=== PATIENT | female | born 1970 | race Caucasian/White ===

== ENCOUNTER 2017-07-02 09:22 | Emergency (ER) | payer OTHER ==
[2017-07-02] MEDS ORDERED: LEVOFLOXACIN 500MG-D5W PMX 500 MG in DEXTROSE/WATER 1 100ML.BAG IVPB STA (10:27)
[2017-07-02] MEDS ORDERED: LORazepam 2 MG/ML INJ IV STA (10:28)
[2017-07-02] MEDS ORDERED: KETOROLAC 30 MG/ML 1 ML VIAL IVP STA (10:28)
[2017-07-02] MEDS ORDERED: SODIUM CHLORIDE 0.9% 1,000 ML IV STA ×2 (10:40)
--- NOTE | 2017-07-02 10:40 | ED ---
Abdominal Pain HPI - General Chief Complaint: Abdominal Pain Stated Complaint: ABDOMINAL PAIN, NOT GETTING BETTER Time Seen by Provider: 07/02/17 10:04 Source: patient Mode of arrival: ambulatory Limitations: no limitations - History of Present Illness Initial Comments: This 47-year-old white female presents with a complaint of a urinary tract infection. She states that she has been having some frequency, urgency, dysuria but no hematuria which started approximately one week ago. She saw her primary care physician and was placed on ciprofloxacin 250 mg twice a day for 7 days. She states that her symptoms have persisted. She is now complaining of some pain into her left lower abdomen. There is no flank pain or fever. She states that the pain is moderate in severity. She is quite anxious. She denies any vomiting or diarrhea. No other complaints or modifying factors. - Related Data Home Medications Medication Instructions Recorded Confirmed Albuterol Nebulized [Ventolin 2.5 mg INHALATION RT-QID PRN 07/02/17 07/02/17 Nebulized] Ciprofloxacin HCl [Cipro] 250 mg PO DIRECTED 07/02/17 07/02/17 Uristat 95 Mg 95 mg PO BID 07/02/17 07/02/17 Previous Rx's Medication Instructions Recorded Levofloxacin [Levaquin] 750 mg PO DAILY #7 tab 07/02/17 Ondansetron [Zofran ODT] 8 mg PO Q8HR PRN #12 tab 07/02/17 traMADol HCl [Ultram] 50 - 100 mg PO Q6H PRN #15 tab 07/02/17 Allergies Allergy/AdvReac Type Severity Reaction Status Date / Time cefaclor [From Ceclor] Allergy Anaphylaxis Verified 07/02/17 10:28 Review of Systems ROS Statement: Those systems with pertinent positive or pertinent negative responses have been documented in the HPI. ROS Other: All systems not noted in ROS Statement are negative. Past Medical History Past Medical History: Asthma History of Any Multi-Drug Resistant Organisms: None Reported Past Surgical History: Cholecystectomy Past Psychological History: No Psychological Hx Reported Smoking Status: Current every day smoker Past Alcohol Use History: None Reported Past Drug Use History: None Reported General Exam - General Exam Comments Initial Comments: GENERAL: The patient is well nourished and well hydrated. VITAL SIGNS: Heart rate, blood pressure, respiratory rate reviewed as recorded in nurse's notes. EYES: Pupils are round and reactive. Extraocular movements are intact. No conjunctival / lid redness or swelling. ENT: No external evidence of injury, swelling, or ecchymosis. Airway is patent. Throat is clear. NECK: Nontender. No swelling or evidence of injury. No subcutaneous emphysema. Trachea is midline. No thyroid mass. HEART: Regular rate and rhythm. Good peripheral pulses. LUNGS/CHEST: Breath sounds clear and equal bilaterally. No rales, rhonchi, or wheezes. No ecchymosis, subcutaneous emphysema, or tenderness. ABDOMEN: There is some mild tenderness noted in the left lower quadrant. No palpable masses or organomegaly. No peritoneal signs. No abdominal wall swelling or ecchymosis. No flank tenderness noted. EXTREMITIES: No extremity tenderness. Normal muscle tone and function. No thoracolumbar tenderness. NEUROLOGIC: Sensation is grossly intact. Cranial nerve exam reveals face is symmetrical, tongue is midline, speech is clear. SKIN: No abrasions or ecchymosis is noted. No induration or masses noted. PSYCHIATRIC: Alert and oriented. Extremely anxious. Limitations: no limitations Course Vital Signs 07/02/17 09:58 Temperature 97.9 F Pulse Rate 106 H Respiratory 20 Rate Blood Pressure 145/74 O2 Sat by Pulse 97 Oximetry Medical Decision Making - Medical Decision Making The patient was seen and examined. All diagnostics were reviewed. An IV is established and she received some Ativan, Toradol, and Levaquin. The laboratories reviewed and overall is fairly unremarkable. The urinalysis currently does not show any evidence of infection. The patient had a computed tomography scan of the abdomen and pelvis and this does not show any acute abnormalities. She is feeling remarkably improved on recheck. Her pain is much improved and her anxiety is improved. The exact cause of her abdominal pain is not definitively determined. It is felt as though she still may have a urinary infection. Is felt that her urine may be somewhat sterilized from the recent Cipro use but she still is having the frequency or urgency dysuria and the suprapubic pain with some slight pain to the left as well. It is felt that she is stable for discharge but will be continued on antibiotics as well as pain medications and nausea medications. She understands and agrees with this plan. His recommend that she follow up with her physician closely. It also appears that she has underlying anxiety issues that may want to be addressed through primary care. - Lab Data Result diagrams: 07/02/17 10:20 07/02/17 10:20 Lab Results 07/02/17 07/02/17 07/02/17 Range/Units 10:20 10:20 10:20 WBC 9.6 (3.8-10.6) k/uL RBC 4.70 (3.80-5.40) m/uL Hgb 13.7 (11.4-16.0) gm/dL Hct 42.3 (34.0-46.0) % MCV 89.9 (80.0-100.0) fL MCH 29.1 (25.0-35.0) pg MCHC 32.3 (31.0-37.0) g/dL RDW 12.3 (11.5-15.5) % Plt Count 447 (150-450) k/uL Neutrophils % (Manual) 78 % Lymphocytes % (Manual) 21 % Monocytes % (Manual) 1 % Neutrophils # (Manual) 7.49 (1.3-7.7) k/uL Lymphocytes # (Manual) 2.02 (1.0-4.8) k/uL Monocytes # (Manual) 0.10 (0-1.0) k/uL Nucleated RBCs 0 (0-0) /100 WBC Manual Slide Review Performed Poikilocytosis (manual Present Sodium 145 (137-145) mmol/L Potassium 5.3 H (3.5-5.1) mmol/L Chloride 105 (98-107) mmol/L Carbon Dioxide 28 (22-30) mmol/L Anion Gap 12 mmol/L BUN 16 (7-17) mg/dL Creatinine 0.70 (0.52-1.04) mg/dL Est GFR (MDRD) Af Amer >60 (>60 ml/min/1.73 sqM) Est GFR (MDRD) Non-Af >60 (>60 ml/min/1.73 sqM) Glucose 102 H (74-99) mg/dL Calcium 10.5 H (8.4-10.2) mg/dL Urine Color Urine Appearance (Clear) Urine pH (5.0-8.0) Ur Specific [place] (1.001-1.035) Urine Protein (Negative) Urine Glucose (UA) (Negative) Urine Ketones (Negative) Urine Blood (Negative) Urine Nitrite (Negative) Urine Bilirubin (Negative) Urine Urobilinogen (<2.0) mg/dL Ur Leukocyte Esterase (Negative) Urine HCG, Qual Not Detected (Not Detectd) 07/02/17 Range/Units 10:20 WBC (3.8-10.6) k/uL RBC (3.80-5.40) m/uL Hgb (11.4-16.0) gm/dL Hct (34.0-46.0) % MCV (80.0-100.0) fL MCH (25.0-35.0) pg MCHC (31.0-37.0) g/dL RDW (11.5-15.5) % Plt Count (150-450) k/uL Neutrophils % (Manual) % Lymphocytes % (Manual) % Monocytes % (Manual) % Neutrophils # (Manual) (1.3-7.7) k/uL Lymphocytes # (Manual) (1.0-4.8) k/uL Monocytes # (Manual) (0-1.0) k/uL Nucleated RBCs (0-0) /100 WBC Manual Slide Review Poikilocytosis (manual Sodium (137-145) mmol/L Potassium (3.5-5.1) mmol/L Chloride (98-107) mmol/L Carbon Dioxide (22-30) mmol/L Anion Gap mmol/L BUN (7-17) mg/dL Creatinine (0.52-1.04) mg/dL Est GFR (MDRD) Af Amer (>60 ml/min/1.73 sqM) Est GFR (MDRD) Non-Af (>60 ml/min/1.73 sqM) Glucose (74-99) mg/dL Calcium (8.4-10.2) mg/dL Urine Color Yellow Urine Appearance Clear (Clear) Urine pH 7.0 (5.0-8.0) Ur Specific [place] 1.002 (1.001-1.035) Urine Protein Negative (Negative) Urine Glucose (UA) Negative (Negative) Urine Ketones Negative (Negative) Urine Blood Negative (Negative) Urine Nitrite Negative (Negative) Urine Bilirubin Negative (Negative) Urine Urobilinogen <2.0 (<2.0) mg/dL Ur Leukocyte Esterase Negative (Negative) Urine HCG, Qual (Not Detectd) Disposition Clinical Impression: Abdominal pain, Anxiety, UTI (urinary tract infection), Hypertension, Nausea and vomiting Disposition: HOME SELF-CARE Condition: Good Instructions: Abdominal Pain (ED), Urinary Tract Infection in Women (ED), Anxiety (ED), Hypertension (ED) Prescriptions: Levofloxacin [Levaquin] 750 mg PO DAILY #7 tab Ondansetron [Zofran ODT] 8 mg PO Q8HR PRN #12 tab PRN Reason: Nausea traMADol HCl [Ultram] 50 - 100 mg PO Q6H PRN #15 tab PRN Reason: Pain Referrals: Bairon Perez MD [Primary Care Provider] - 1-2 days Time of Disposition: 11:53
[2017-07-02 10:42] LABS: Appearance,Urine Clear (Clear); Bilirubin,Urine Negative (Negative); Blood,Urine Negative (Negative); Color,Urine Yellow; Glucose,Urine (UA) Negative (Negative); Ketones,Urine Negative (Negative); Leukocyte Esterase,Urine Negative (Negative); Nitrite,Urine Negative (Negative); Protein,Urine Negative (Negative); Specific Gravity,Urine 1.002 (1.001-1.035); Urobilinogen,Urine <2.0 mg/dL (<2.0)
[2017-07-02 10:47] LABS: HCT 42.3 % (34.0-46.0); HGB 13.7 gm/dL (11.4-16.0); MCH 29.1 pg (25.0-35.0); MCHC 32.3 g/dL (31.0-37.0); MCV 89.9 fL (80.0-100.0); Mean Platelet Volume 7.4; Platelet Count 447 k/uL (150-450); RDW 12.3 % (11.5-15.5); WBC 9.6 k/uL (3.8-10.6)
[2017-07-02 10:54] LABS: Anion Gap 12 mmol/L; Blood Urea Nitrogen 16 mg/dL (7-17); Calcium 10.5 mg/dL (8.4-10.2); Carbon Dioxide 28 mmol/L (22-30); Chloride 105 mmol/L (98-107); Glucose 102 mg/dL (74-99); Potassium 5.3 mmol/L (3.5-5.1); Sodium 145 mmol/L (137-145)
--- NOTE | 2017-07-02 10:56 | CT ---
EXAMINATION TYPE: CT abdomen pelvis wo con DATE OF EXAM: 07/02/2017 COMPARISON: NONE INDICATION: Pelvic pain, UTI DLP: 233.9 mGycm, Automated exposure control for dose reduction was used. CONTRAST: None Study performed without Oral Contrast TECHNIQUE: Axial images were obtained from above the diaphragm to the pubic rami in the axial plane a t 5 mm thick sections. Reconstructed images are reviewed on the computer in the coronal plane. FINDINGS: Limited CT sections are obtained the lung bases. The lung bases are clear. CT ABDOMEN: Liver: Normal Spleen: Normal Pancreas: Normal Adrenal glands: The adrenal glands are normal. Gallbladder: Surgically absent Kidneys: No masses are evident. No hydronephrosis is present. No cysts are present. No renal stone s are evident. Aorta: Vascular calcification is within the aorta. Inferior vena cava: Normal. CT PELVIS: Loops of bowel within the abdomen and pelvis are normal. Studies without oral contrast limiting t he evaluation. Appendix: Not identified. No suspicious tubular structures or inflammatory changes are evident. Urinary bladder: Normal. Genitourinary structures: Uterus and ovaries appear within normal limits. No free fluid is within the pelvis. Osseous structures: No suspicious lytic or sclerotic lesions. IMPRESSIONS: 1. No acute changes abdomen or pelvis.
[2017-07-02 11:08] LABS: Lymphocytes # (M) 2.02 k/uL (1.0-4.8); Neutrophils # (M) 7.49 k/uL (1.3-7.7); Neutrophils % (M) 78 %; Nucleated Red Blood Cells 0 /100 WBC (0-0); Poikilocytosis (M) Present; Total Cells Counted 100
[2017-07-02 12:04] VITALS: BP 99/57; PULSE 87; RESP 16; TEMP 97.8
== END 2017-07-02 12:19 | disposition home or self-care (01) ==
LOC: EC 09:22
DX: N39.0 Urinary tract infection, site not specified (principal); I10 Essential (primary) hypertension; R11.2 Nausea with vomiting, unspecified; F17.200 Nicotine dependence, unspecified, uncomplicated; Z79.899 Other long term (current) drug therapy; Z88.1 Allergy status to other antibiotic agents; Z90.49 Acquired absence of other specified parts of digestive tract
CPT/HCPCS: 36415; 80048; 85025; 81003; 81025; 74176; 99284; 96365; 96375 ×2; J2060; J1956; J1885

== ENCOUNTER 2017-07-09 14:24 | Emergency (ER) | payer OTHER ==
[2017-07-09 15:13] VITALS: TEMP 98
[2017-07-09 16:19] LABS: ALT 18 U/L (9-52); AST 18 U/L (14-36); Albumin 4.8 g/dL (3.5-5.0); Alkaline Phosphatase 87 U/L (38-126); Amylase 48 U/L (30-110); Anion Gap 13 mmol/L; Blood Urea Nitrogen 14 mg/dL (7-17); Calcium 10.4 mg/dL (8.4-10.2); Carbon Dioxide 27 mmol/L (22-30); Chloride 104 mmol/L (98-107); Glucose 93 mg/dL (74-99); Lipase 106 U/L (23-300); Potassium 4.9 mmol/L (3.5-5.1); Sodium 144 mmol/L (137-145); Total Bilirubin 0.5 mg/dL (0.2-1.3)
[2017-07-09 16:25] LABS: HGB 14.1 gm/dL (11.4-16.0); MCH 29.3 pg (25.0-35.0); MCHC 33.6 g/dL (31.0-37.0); MCV 87.1 fL (80.0-100.0); Mean Platelet Volume 7.4; Platelet Count 397 k/uL (150-450); RBC 4.82 m/uL (3.80-5.40); RDW 12.4 % (11.5-15.5); WBC 10.3 k/uL (3.8-10.6)
[2017-07-09] MEDS ORDERED: SODIUM CHLORIDE 0.9% 1,000 ML IV STA (16:30)
[2017-07-09] MEDS ORDERED: LORazepam 2 MG/ML INJ IV STA (16:30)
[2017-07-09] MEDS ORDERED: ONDANSETRON 4 MG/2 ML VIAL IVP STA ×2 (16:30→19:28)
[2017-07-09 16:52] LABS: Lymphocytes # (M) 3.09 k/uL (1.0-4.8); Monocytes # (M) 0.52 k/uL (0-1.0); Neutrophils % (M) 65 %; Nucleated Red Blood Cells 0 /100 WBC (0-0); Total Cells Counted 100
--- NOTE | 2017-07-09 17:31 | ED ---
General Adult HPI - General Chief complaint: Nausea/Vomiting/Diarrhea Stated complaint: Abd Pain Time Seen by Provider: 07/09/17 16:19 Source: patient, RN notes reviewed Mode of arrival: ambulatory Limitations: no limitations - History of Present Illness Initial comments: Patient is a 47-year-old female who presents emergency room today with a chief complaint of abdominal pain over the last week. She does admit that she was seen here in the emergency room one week ago. She states she was started on antibiotics Levaquin. She states she took this for 2 days. She states she felt ligament symptoms worse. She does admit to increased nausea vomiting. States she has thrush with some pain to her tongue. Patient states that she had increased pain to the left lower quadrant earlier today. She did see her family doctor in the office and had lab work obtained was not having pain at the time. She states the pain is somewhat subsided again at this time. Patient denies any recent fever, chills, shortness of breath, chest pain, back pain, numbness or tingling, dysuria or hematuria, constipation or diarrhea, headaches or visual changes, or any other complaints. - Related Data Home Medications Medication Instructions Recorded Confirmed Albuterol Sulfate [Proair Hfa] 1 puff INHALATION RT-BID PRN 07/09/17 07/09/17 Ibuprofen [Motrin Ib] 400 mg PO Q6HR PRN 07/09/17 07/09/17 Ipratropium-Albuterol Nebulize 3 ml INHALATION RT-TID PRN 07/09/17 07/09/17 [Duoneb 0.5 mg-3 mg/3 ml Soln] Ondansetron [Zofran ODT] 4 mg PO Q8HR PRN 07/09/17 07/09/17 Previous Rx's Medication Instructions Recorded traMADol HCl [Ultram] 50 - 100 mg PO Q6H PRN #15 tab 07/02/17 Nystatin 100,000 Unit/ml Susp 5 ml PO QID 7 Days ml 07/09/17 [Mycostatin Oral Susp] Allergies Allergy/AdvReac Type Severity Reaction Status Date / Time cefaclor [From Ceclor] Allergy Anaphylaxis Verified 07/09/17 16:34 levofloxacin [From Levaquin] AdvReac Severe Nausea & Verified 07/09/17 16:34 Vomiting Review of Systems ROS Statement: Those systems with pertinent positive or pertinent negative responses have been documented in the HPI. ROS Other: All systems not noted in ROS Statement are negative. Past Medical History Past Medical History: Asthma History of Any Multi-Drug Resistant Organisms: None Reported Past Surgical History: Cholecystectomy Past Psychological History: No Psychological Hx Reported Smoking Status: Current every day smoker Past Alcohol Use History: None Reported Past Drug Use History: None Reported General Exam - General Exam Comments Initial Comments: General: The patient is awake and alert, in no distress, and does not appear acutely ill. Anxious. Eye: Pupils are equal, round and reactive to light, extra-ocular movements are intact. No nystagmus. There is normal conjunctiva bilaterally. No signs of icterus. Ears, nose, mouth and throat: There are moist mucous membranes and no oral lesions. Neck: The neck is supple, there is no tenderness or JVD. Cardiovascular: There is a regular rate and rhythm. No murmur, rub or gallop is appreciated. Respiratory: Lungs are clear to auscultation, respirations are non-labored, breath sounds are equal. No wheezes, stridor, rales, or rhonchi. Gastrointestinal: Normal appearance abdomen. Normal bowel sounds. Soft on palpation. Patient does have tenderness left lower quadrant. No rebound tenderness. No guarding. No CVA tenderness. Musculoskeletal: Normal ROM, no tenderness. Strength 5/5. Sensation intact. Pulses equal bilaterally 2+. Neurological: A&O x 3. CN II-XII intact, There are no obvious motor or sensory deficits. Coordination appears grossly intact. Speech is normal. Skin: Skin is warm and dry and no rashes or lesions are noted. Psychiatric: Cooperative, appropriate mood & affect, normal judgment. Limitations: no limitations Course Vital Signs 07/09/17 07/09/17 15:10 16:54 Temperature 98.0 F Pulse Rate 107 H 82 Respiratory 18 22 Rate Blood Pressure 122/73 126/59 O2 Sat by Pulse 96 96 Oximetry Medical Decision Making - Medical Decision Making Patient did have a CAT scan performed on 07/02/2017 which was reviewed showing no acute abnormality. Patient's labs been reviewed no elevated white count. No fever here in the emergency room. Patient's vitals are stable. Patient's x- ray shows moderate amount stool sign of obstruction. Options were discussed with patient about a enema. Was given enema here in the emergency room able have bowel movement. Is feeling somewhat nauseous at this time. Patient to some cramping lower abdomen. She feels couple being discharged. Patient will be treated for thrush infection has resolved whiteness obvious pain. She was on Levaquin for 3 days. Patient will also be given magnesium citrate to go home with. Advised to use this and follow-up the family doctor tomorrow advised return if any symptoms increase or other concerns. Patient states understanding and is in agreement with the plan. - Lab Data Result diagrams: 07/09/17 16:03 07/09/17 16:03 Lab Results 07/09/17 07/09/17 Range/Units 16:03 16:03 WBC 10.3 (3.8-10.6) k/uL RBC 4.82 (3.80-5.40) m/uL Hgb 14.1 (11.4-16.0) gm/dL Hct 42.0 (34.0-46.0) % MCV 87.1 (80.0-100.0) fL MCH 29.3 (25.0-35.0) pg MCHC 33.6 (31.0-37.0) g/dL RDW 12.4 (11.5-15.5) % Plt Count 397 (150-450) k/uL Neutrophils % (Manual) 65 % Lymphocytes % (Manual) 30 % Monocytes % (Manual) 5 % Neutrophils # (Manual) 6.70 (1.3-7.7) k/uL Lymphocytes # (Manual) 3.09 (1.0-4.8) k/uL Monocytes # (Manual) 0.52 (0-1.0) k/uL Nucleated RBCs 0 (0-0) /100 WBC Manual Slide Review Performed Sodium 144 (137-145) mmol/L Potassium 4.9 (3.5-5.1) mmol/L Chloride 104 (98-107) mmol/L Carbon Dioxide 27 (22-30) mmol/L Anion Gap 13 mmol/L BUN 14 (7-17) mg/dL Creatinine 0.70 (0.52-1.04) mg/dL Est GFR (MDRD) Af Amer >60 (>60 ml/min/1.73 sqM) Est GFR (MDRD) Non-Af >60 (>60 ml/min/1.73 sqM) Glucose 93 (74-99) mg/dL Calcium 10.4 H (8.4-10.2) mg/dL Total Bilirubin 0.5 (0.2-1.3) mg/dL AST 18 (14-36) U/L ALT 18 (9-52) U/L Alkaline Phosphatase 87 (38-126) U/L Total Protein 8.0 (6.3-8.2) g/dL Albumin 4.8 (3.5-5.0) g/dL Amylase 48 (30-110) U/L Lipase 106 (23-300) U/L Disposition Clinical Impression: Abdominal pain, Thrush Disposition: HOME SELF-CARE Condition: Good Instructions: Abdominal Pain (ED), Oral Candidiasis (ED) Additional Instructions: Please follow-up the family doctor tomorrow. Please use medications as discussed. Please return to emergency room if any symptoms increase worsen. Prescriptions: Nystatin 100,000 Unit/ml Susp [Mycostatin Oral Susp] 5 ml PO QID 7 Days ml Referrals: Bairon Perez MD [Primary Care Provider] - 1-2 days Time of Disposition: 19:26
[2017-07-09] MEDS ORDERED: DOCUSATE 283 MG/5 ML ENEMA RECTAL STA ×2 (17:43)
--- NOTE | 2017-07-09 19:21 | XR ---
EXAMINATION TYPE: XR KUB DATE OF EXAM: 07/09/2017 COMPARISON: NONE HISTORY: Abdominal pain TECHNIQUE: 2 views FINDINGS: There is no sign of intestinal obstruction or pneumoperitoneum. Fecal pattern is normal. Th ere are clips from cholecystectomy. Lung bases are clear. There is no evidence of a mass. There is sl ight thoracolumbar dextroscoliosis. IMPRESSION: Nonacute abdomen. No evidence of renal calculus.
[2017-07-09] MEDS ORDERED: MAGNESIUM CITRATE 296 ML BOTTLE PO ONE (19:27)
[2017-07-09 19:49] VITALS: BP 113/57; PULSE 61; RESP 18
== END 2017-07-09 19:48 | disposition home or self-care (01) ==
LOC: EC 14:24
DX: R10.32 Left lower quadrant pain (principal); B37.9 Candidiasis, unspecified; R11.2 Nausea with vomiting, unspecified; F17.200 Nicotine dependence, unspecified, uncomplicated; Z88.1 Allergy status to other antibiotic agents
CPT/HCPCS: 36415; 80053; 82150; 83690; 85025; 74018; 99284; 96374; 96375; 96376; 96361; J2060; J2405

== ENCOUNTER 2017-08-07 08:51 | Day surgery (SDC) | payer OTHER ==
[2017-08-03 09:23] VITALS: BMI 18.1
[~2017-08-07 08:51] MED LIST: LACTATED RINGERS 1,000 ML IV SCH; LIDOCAINE 1% 20 ML VIAL (10MG/ML) FOR IV START INTRADERMA PRN
[2017-08-07 09:24] VITALS: TEMP 97.5
[2017-08-07] MEDS ORDERED: MIDAZOLAM 2 MG/2 ML VIAL IV ONE (09:46)
[2017-08-07] MEDS ORDERED: ONDANSETRON 4 MG/2 ML VIAL ONE (09:58)
[2017-08-07] MEDS ORDERED: PROPOFOL 10 MG/ML 20 ML VIAL IV ONE (09:58)
[2017-08-07] MEDS ORDERED: MIDAZOLAM 2 MG/2 ML VIAL ONE (09:58)
[2017-08-07] MEDS ORDERED: fentaNYL (PF) 50 MCG/ML 2 ML AMP ONE (09:58)
[2017-08-07] MEDS ORDERED: LIDOCAINE 1% INJ 10MG/ML (20 ML MDV) ONE (09:58)
--- NOTE | 2017-08-07 10:45 | P.PCN ---
Date of Procedure: 08/07/17 Procedure(s) Performed: Procedures: Esophagogastroduodenoscopy and biopsy. Colonoscopy and biopsy. Preoperative diagnosis: Epigastric pain and change in bowel habits. Postoperative diagnosis: Small sliding hiatal hernia with no obvious esophagitis or complicated reflux disease. Mild antral gastritis. Normal colonoscopy. Biopsies obtained from the duodenum, antrum, esophagus and random colon. Preparation: HalfLytely prep. Sedation: Was provided by anesthesia. Brief clinical history: The patient is a 47-year-old female who is scheduled for this evaluation because of change in bowel habits and abdominal pains. The patient gave history of diarrhea but more recently has been experiencing constipation followed by episodes of diarrhea. Has been having epigastric pain as well as mid abdominal pains as well. This would be her first upper endoscopy and colonoscopy. Procedure: With the patient on her left lateral decubitus position and after informed consent and adequate sedation, I passed the Olympus-GIF 160 video upper endoscope through the cricopharyngeus down the esophagus GE junction was around 39 cm from the incisors and there was a small sliding hiatal hernia but no obvious esophagitis or complicated reflux disease. The endoscope was then passed into the stomach which was insufflated with air and inspected in detail including the retroflex view in the cardia. There was some mottling and erythema in the antrum but no ulcers or erosions. No pyloric channel ulcers. Duodenal bulb, post bulbar area and descending duodenum appeared within normal limits. I obtained multiple biopsies from the duodenum, antrum and esophagus then the endoscope was withdrawn and I proceeded with the colonoscopy. Perianal area did not show any fissures or fistulas. There were no masses felt on digital rectal examination. The Olympus CFQ 160L video colonoscope was then inserted in the rectum in the usual fashion and advanced to the cecum. I was not able to intubate the ileocecal valve to examine the terminal ileum. The colon showed healthy mucosa with no edema, erythema, friability, ulceration, exudation or spontaneous bleeding. No polyps or tumors were seen. I obtained biopsies randomly from the colon then I retroflexed the endoscope in the rectum before the endoscope was withdrawn. The patient tolerated the procedure well. Plan: The patient was reassured. Will await pathology results. Further plans can be made based on her course and biopsy results. She will follow-up with you as planned and I will keep you updated on her progress.
[2017-08-07 11:14] VITALS: BP 114/77; PULSE 70; RESP 18
== END 2017-08-07 11:51 | disposition home or self-care (01) ==
LOC: ORWHC2ENDO 08:51
DX: K29.70 Gastritis, unspecified, without bleeding (principal); K21.0 Gastro-esophageal reflux disease with esophagitis; K44.9 Diaphragmatic hernia without obstruction or gangrene; F17.210 Nicotine dependence, cigarettes, uncomplicated; F41.9 Anxiety disorder, unspecified; Z79.899 Other long term (current) drug therapy; Z88.1 Allergy status to other antibiotic agents
CPT/HCPCS: 81025; 88305; 45380; 43239; J2250; J2405; J2001; J3010; J2704